=== PATIENT | female | born 1980 ===

== ENCOUNTER 2020-12-09 09:15 | Inpatient (IN) | payer OTHER ==
[~2020-12-09] VITALS: Ht 160 cm; Wt 79.4 kg
[2020-12-09] MEDS ORDERED: ZYRTEC10 M3 PO (10:12)
[2020-12-09] MEDS ORDERED: BENADRYL25 MG PO (10:12)
[2020-12-09] MEDS ORDERED: SULINDAC1 GM (10:13)
[2020-12-09] MEDS ORDERED: IRON256 MG PO (10:15)
== END 2020-12-19 14:14 | disposition home or self-care (01) | DRG 743 ==
LOC: ADM 09:15 → EDSTATUS 09:15 → OB/GYN 12-16 02:00 → O/R 12-16 09:02 → OB/GYN 12-16 09:15
PROVIDERS: ADMIT Obstetrics & Gynecology; ATTEND Obstetrics & Gynecology
PROC: 0UB70ZZ Excision of Bilateral Fallopian Tubes, Open Approach (ICD-10-PCS; 2020-12-16)
PROC: 0UT90ZZ Resection of Uterus, Open Approach (ICD-10-PCS; principal; 2020-12-16 02:00)
DX: D25.1 Intramural leiomyoma of uterus (principal); N72 Inflammatory disease of cervix uteri; N80.0 Endometriosis of uterus; N83.8 Other noninflammatory disorders of ovary, fallopian tube and broad ligament; D26.1 Other benign neoplasm of corpus uteri; N93.9 Abnormal uterine and vaginal bleeding, unspecified